=== PATIENT | female | born 1975 | race Caucasian/White ===

== ENCOUNTER 2016-08-28 10:01 | Emergency (ER) | payer SELFPAY ==
[~2016-08-28] VITALS: Ht 162.6 cm; Wt 68.2 kg
[~2016-08-28 10:01] MED LIST: ONDA4TAB7 SL
[2016-08-28 10:16] VITALS: TEMP 37; Ht 162.6 cm; Wt 68.2 kg
[2016-08-28 10:38] VITALS: O2SAT 98
--- NOTE | 2016-08-28 10:48 | EMERGENCY ROOM VISIT NOTE ---
History Report prepared by Geeta: Yin Hess Under the Supervision of: Dr. Margarito Elliott M.D. First contact with patient: 10:37 Chief Complaint: CARDIAC ASSESSMENT Stated Complaint: RT ARM NBUMBNESS, CHEST HEAVY, NECK PAIN, SWEATY Nursing Triage Summary: Triage note: pt reports for the past 2 weeks she has had intermittent chest heaviness, right arm numbness, neck pain, feeling sweaty. pt reports "i have been sleeping a lot." History of Present Illness The patient is a 41 year old female who presents to the Emergency Room with complaints of intermittent right sided- substernal chest pain that began two weeks ago. She currently rates her discomfort as a 6/10 in severity. The patient states that she has intermittently been experiencing the chest pain, and additionally notes intermittent diaphoresis, intermittent neck pain that radiates from the back of the neck to the side of the neck, and intermittent nausea. She states that today she began noticing intermittent right hand numbness. The patient denies seeing her PCP for her symptoms, noting that she does not have one. She denies any history of neck problems, neck injuries, lyme disease, thyroid problems, or lyme disease. The patient denies any active medical problems. She states that she has been sleeping more, but denies any abdominal pain. The patient states that she has been working more and denies any exposure to strange chemicals. Source of History: patient Onset: two weeks ago Position: chest (right sided-substernal) Symptom Intensity: 6/10 Timing: intermittent Associated Symptoms: + diaphoresis, + nausea, + neck pain, No abdominal pain Review of Systems See HPI for pertinent positives & negatives. A total of 10 systems reviewed and were otherwise negative. Past Medical & Surgical Surgical Problems: (1) H/O: hysterectomy Family History Cancer Diabetes mellitus FH: heart disease FHx: gallbladder disease Hypertension Social History Smoking Status: Current Every Day Smoker Alcohol Use: occasionally Drug Use: none Marital Status: in relationship Housing Status: lives with significant other Occupation Status: employed Current/Historical Medications Scheduled Methylprednisolone (Medrol Dosepak), 1 PKT PO UD Allergies Coded Allergies: No Known Allergies (Verified , 08/28/16) Uncoded Allergies: N (Allergy, Unknown, 08/25/02) NFA (Allergy, Unknown, 08/25/02) NKDA (Allergy, Unknown, 08/25/02) NO (Allergy, Unknown, 08/25/02) Physical Exam Vital Signs Date Time Temp Pulse Resp B/P Pulse Ox O2 Delivery O2 Flow Rate FiO2 08/28/16 12:24 73 18 106/78 99 08/28/16 11:11 67 18 106/65 98 Room Air 08/28/16 10:54 66 08/28/16 10:38 98 Room Air 08/28/16 10:16 37.0 84 18 132/74 99 Room Air Physical Exam GENERAL: Patient is anxious appearing, in minimal distress. HEENT: No acute trauma, normocephalic atraumatic, mucous membranes moist, no nasal congestion, no scleral icterus. NECK: No stridor, no adenopathy, no meningismus, trachea is midline. LUNGS: No dyspnea. Clear to auscultation and equal bilaterally. No wheeze, no rhonchi. HEART: Regular rate and rhythm. No murmurs, rubs, gallops appreciated. ABDOMEN: Soft, nontender, bowel sounds positive, no masses appreciated, no peritonitis. BACK: No midline tenderness, no CVA tenderness EXTREMITIES: Normal motion all extremities, no cyanosis, no edema. NEUROLOGIC: Alert and oriented, no acute motor or sensory deficits, no focal weakness, cranial nerves grossly intact. SKIN: No rash, no jaundice, no diaphoresis. Medical Decision & Procedures ER Provider Diagnostic Interpretation: X ray results are stated below per my interpretation and the radiologist's interpretation. SINGLE VIEW CHEST CLINICAL HISTORY: Atypical chest pain. FINDINGS: An AP, portable, upright chest radiograph is compared to study dated 09/04/2014. The cardiomediastinal silhouette is unremarkable. The lungs appear hyperinflated, likely due to good inspiratory result. The lungs and pleural spaces are clear. No pneumothorax is seen. The bony thorax is grossly intact. IMPRESSION: No active disease in the chest. Electronically signed by: Manpreet Rizvi M.D. 08/28/2016 11:03 AM Dictated Date/Time: 08/28/2016 11:02 AM Laboratory Results 08/28/16 10:25 08/28/16 10:25 Test 08/28/16 10:25 08/28/16 10:41 Red Blood Count 4.79 M/uL (4.2-5.4) Mean Corpuscular Volume 86.4 fL (80-100) Mean Corpuscular Hemoglobin 30.1 pg (25-34) Mean Corpuscular Hemoglobin Concent 34.8 g/dl (32-36) RDW Standard Deviation 45.4 fL (36.4-46.3) RDW Coefficient of Variation 14.2 % (11.5-14.5) Mean Platelet Volume 10.3 fL (7.4-10.4) Prothrombin Time 10.6 SECONDS (9.0-12.0) Prothromb Time International Ratio 1.0 (0.9-1.1) Activated Partial Thromboplast Time 24.7 SECONDS (21.0-31.0) Partial Thromboplastin Ratio 1.0 D-Dimer < 190 ug/L FEU (0-500) Anion Gap 9.0 mmol/L (3-11) Est Creatinine Clear Calc Drug Dose 78.2 ml/min Estimated GFR () 93.3 Estimated GFR (Non- 80.5 BUN/Creatinine Ratio 15.6 (10-20) Calcium Level 8.8 mg/dl (8.5-10.1) Total Bilirubin 0.3 mg/dl (0.2-1) Aspartate Amino Transf (AST/SGOT) 11 U/L (15-37) Alanine Aminotransferase (ALT/SGPT) 19 U/L (12-78) Alkaline Phosphatase 71 U/L (45-117) Total Creatine Kinase 89 U/L (26-192) Creatine Kinase MB 0.7 ng/ml (0.5-3.6) Creatine Kinase MB Ratio 0.8 (0-3.0) Total Protein 7.3 gm/dl (6.4-8.2) Albumin 4.3 gm/dl (3.4-5.0) Globulin 3.0 gm/dl (2.5-4.0) Albumin/Globulin Ratio 1.4 (0.9-2) Thyroid Stimulating Hormone (TSH) 1.170 uIu/ml (0.300-4.500) Bedside Troponin I 0.000 ng/ml (0-0.045) Laboratory results as reviewed by me. ECG Indication: chest pain Rate (beats per minute): 74 Rhythm: normal sinus Findings: no acute ischemic change, no ectopy ED Course 1038: The patient was evaluated in room C4. A complete history and physical exam was performed. 1202: I reevaluated the patient and she is feeling well. I discussed the exam findings with her and I discussed the treatment plan. She verbalized complete understanding and agreement. She is ready to go home. Medical Decision Differential: Cardiac Ischemia (STEMI, NSTEMI, Unstable Angina, etc), Aortic Dissection, Arrhythmia, Pulmonary Embolism, Pneumonia, Pneumothorax, MSK, Infectious, Pericarditis/Myocarditis, Esophageal Rupture, Gastrointestinal, amongst other pathologies entertained. 41 yr old female with right arm paresthesia and right upper chest discomfort. Periodically from neck. Notes periodic chills recently. Right arm normal on exam with no masses, normal pulse and neuro intact. EKG normal. Trop and Dimer negative. Wbc normal. Otherwise labs unremarkable. She is stable appearing and in no distress. TSH normal as well. No clear etiology of symptoms but I do not feel this represents ACS as ongoing symptoms with negative cardiac work up. Not PE/clot as dimer negative. No evidence of dissection. No infectious findings. May all be related to cervical radiculopathy thus will try medrol pack. Stressed PCP follow up and if worsening RTED immediately or call 911. Impression Primary Impression: Arm paresthesia, right Additional Impression: Right-sided chest pain Scribe Attestation The scribe's documentation has been prepared under my direction and personally reviewed by me in its entirety. I confirm that the note above accurately reflects all work, treatment, procedures, and medical decision making performed by me. Departure Information Dispostion Home / Self-Care Prescriptions Methylprednisolone (MEDROL DOSEPAK) 4 Mg Chad 1 PKT PO UD for 6 Days, #1 PKT Prov: Margarito Elliott M.D. 08/28/16 Referrals No Doctor, Assigned (PCP) Forms IMPORTANT VISIT INFORMATION Patient Instructions ED Chest Pain Atypical Unkn Cause, My [facility] Additional Instructions Please follow up with your primary care provider for further evaluation and testing. Return immediately if worsening symptoms or other concerns. Problem Qualifiers
[2016-08-28 10:49] LABS: HEMATOCRIT 41.4 % (37-47); MEAN CELL VOLUME 86.4 fL (80-100); MEAN CORPUSCULAR HEMOGLOBIN 30.1 pg (25-34); MEAN CORPUSCULAR HGB CONC 34.8 g/dl (32-36); MEAN PLATELET VOLUME 10.3 fL (7.4-10.4); PLATELET COUNT 320 K/uL (130-400); RED BLOOD COUNT 4.79 M/uL (4.2-5.4); WHITE BLOOD COUNT 6.85 K/uL (4.8-10.8)
[2016-08-28 11:00] LABS: PROTHROMBIN TIME (PATIENT) 10.6 SECONDS (9.0-12.0)
--- NOTE | 2016-08-28 11:04 | DIAGNOSTIC IMAGING REPORT ---
SINGLE VIEW CHEST CLINICAL HISTORY: Atypical chest pain. FINDINGS: An AP, portable, upright chest radiograph is compared to study dated 09/04/2014. The cardiomediastinal silhouette is unremarkable. The lungs appear hyperinflated, likely due to good inspiratory result. The lungs and pleural spaces are clear. No pneumothorax is seen. The bony thorax is grossly intact. IMPRESSION: No active disease in the chest. Electronically signed by: Manpreet Rizvi M.D. 08/28/2016 11:03 AM Dictated Date/Time: 08/28/2016 11:02 AM
[2016-08-28 11:06] LABS: BUN/CREATININE RATIO 15.6 (10-20); CALCIUM 8.8 mg/dl (8.5-10.1); CREATININE 0.88 mg/dl (0.60-1.20); POTASSIUM 3.6 mmol/L (3.5-5.1)
[2016-08-28 11:11] LABS: ALB/GLOB RATIO 1.4 (0.9-2); CKMB/CK RATIO 0.8 (0-3.0)
[2016-08-28] MEDS ORDERED: METH4PAK PO (12:08)
[2016-08-28 12:24] VITALS: BP 106/78; PULSE 73; O2SAT 99
== END 2016-08-28 12:25 | disposition home or self-care (01) ==
LOC: C.EDB 10:03 → C.EDC 12:25
DX: R07.89 Other chest pain (principal); R20.2 Paresthesia of skin; F17.200 Nicotine dependence, unspecified, uncomplicated; Z90.710 Acquired absence of both cervix and uterus; Z80.9 Family history of malignant neoplasm, unspecified; Z83.3 Family history of diabetes mellitus; Z82.49 Family history of ischemic heart disease and other diseases of the circulatory system; Z83.79 Family history of other diseases of the digestive system

== ENCOUNTER 2018-11-09 18:31 | Observation (INO) ==
[2018-11-09] MEDS ORDERED: ONDANSETRON INJ 2 MG/ML 2 ML VIAL IV STA (19:24)
[2018-11-09] MEDS ORDERED: ACETAMINOPHEN 1,000 MG/100 ML VIAL IV STA (19:24)
[2018-11-09] MEDS ORDERED: SODIUM CHLORIDE 0.9% 1000ML 1,000 ML IV ONE ×2 (19:24→20:09)
[2018-11-09] MEDS ORDERED: DICYCLOMINE HCL 10 MG/ML 2 ML AMP/VIAL IM ONE (19:24)
[2018-11-09 20:08] LABS: Basophils # (auto) 0.04 K/uL (0-0.2); Basophils % (auto) 0.2 %; Eosinophils # (auto) 0.04 K/uL (0-0.5); Eosinophils % (auto) 0.2 %; Hemoglobin 14.9 g/dL (12.0-16.0); Immature Granulocytes # (auto) 0.07 K/uL (0.00-0.02); Immature Granulocytes % (auto) 0.3 %; Lymphocytes # (auto) 1.84 K/uL (1.2-3.4); Lymphocytes % (auto) 9.2 %; Mean Corpuscular Hgb Conc 35.5 g/dL (32-36); Mean Corpuscular Volume 86.8 fL (80-100); Monocytes # (auto) 0.89 K/uL (0.11-0.59); Monocytes % (auto) 4.4 %; Neutrophils # (auto) 17.18 K/uL (1.4-6.5); Neutrophils % (auto) 85.7 %; Platelet Count 307 K/uL (130-400); RDW Coefficient of Variation 14.6 % (11.5-14.5); RDW Standard Deviation 46.5 fL (36.4-46.3); Red Blood Count 4.84 M/uL (4.2-5.4); White Blood Count 20.06 K/uL (4.8-10.8)
[2018-11-09 20:26] LABS: Alanine Aminotransferase 25 U/L (12-78); Albumin Level 4.3 gm/dl (3.4-5.0); Aspartate Aminotransferase 17 U/L (15-37); BUN Creatinine Ratio 24.3 (10-20); Blood Urea Nitrogen 20 mg/dl (7-18); Calcium 9.2 mg/dl (8.5-10.1); Carbon Dioxide 26 mmol/L (21-32); Chloride 107 mmol/L (98-107); Creatinine Clr Calc Pharmacy 86.5 ml/min; Est GFR (African American) 101.7; Est GFR (Non-African American) 87.7; Glucose 96 mg/dl (70-99); Magnesium 2.1 mg/dl (1.8-2.4); Potassium 3.8 mmol/L (3.5-5.1); Sodium 141 mmol/L (136-145)
[2018-11-09 20:31] LABS: Albumin Globulin Ratio 1.3 (0.9-2); Alkaline Phosphatase 79 U/L (45-117); Bilirubin,Total 0.2 mg/dl (0.2-1); Globulin 3.3 gm/dl (2.5-4.0); Total Protein 7.6 gm/dl (6.4-8.2); Troponin I < 0.015 ng/ml (0-0.045)
--- NOTE | 2018-11-09 20:43 | XRay Report ---
XR abdomen 2V w PA chest CLINICAL HISTORY: n/v/d nausea. Vomiting. COMPARISON STUDY: 08/28/2016 FINDINGS: The soft tissues, psoas shadows, renal outlines and intestinal gas pattern appear normal. T here is no evidence for bowel obstruction. There is no evidence for free intraperitoneal air. No abno rmal abdominal calcifications are seen. A frontal view of the chest was performed and is unremarkable . Minimal nonobstructive ileus. IMPRESSION: 1. Negative chest. 2. Minimal nonobstructive ileus. The above report was generated using voice recognition software. It may contain grammatical, syntax or spelling errors. Electronically signed by: Larry Parson M.D. 11/09/2018 8:41 PM
[2018-11-09] MEDS ORDERED: KETOROLAC TROMETHAMINE 15 MG/ML VIAL IV STA (21:09)
[2018-11-09] MEDS ORDERED: IOVERSOL 100ml IV PRN (21:41)
--- NOTE | 2018-11-09 21:55 | CT Scan Report ---
CT abd pelvis IV con only CT DOSE: 398.47 mGy.cm HISTORY: Pain abd pain, n/v/d TECHNIQUE: Multiaxial CT images of the abdomen and pelvis were performed following the use of intrave nous contrast. A dose lowering technique was utilized adhering to the principles of ALARA. COMPARISON STUDY: None. FINDINGS: Lung bases are clear. Liver spleen and pancreas are unremarkable. Kidneys enhance uniformly. There is a 7 mm nonobstructing left renal cortical calcification. There is a 2 mm nonobstructing inferior pole right renal calcification. No evidence for hydronephrosis. The bowel pattern is nonobstructive. The appendix is slightly distended at 8 mm in maximum transaxial dimension. There is a trace amount o f periappendiceal infiltrative change. No evidence for abscess collection or obstructive pattern. Bladder is midline. No free fluid within the pelvic cul-de-sac. IMPRESSION: 1. Findings consistent with a low-grade appendicitis 2. The appendix has a maximum diameter of 8 mm, with a minimal amount of periappendiceal infiltrative change. 3. No evidence for abscess collection or obstruction. 4. Nonobstructing renal nephrocalcinosis. The above report was generated using voice recognition software. It may contain grammatical, syntax or spelling errors. Electronically signed by: Larry Parson M.D. 11/09/2018 9:53 PM
--- OUTSIDE RECORDS SUMMARY | 2018-11-09 22:07 | External Medical Summary | Continuity of Care Document ---
:1975 Author Name Min Cano, Provider Address Unavailable Unavailable , Care Team Providers Name Role Phone Brenda Pulido Unavailable [email or web address] PCP, NO Unavailable Unavailable Problems Active medical history not documented Allergies and Adverse Reactions Allergy history not documented Medications Medications not documented Procedures Procedures not documented Immunizations Immunizations not documented Plan of Treatment Planned Observations Planned Goals not documented Results No Known Results Results not documented Encounters Appointment; Brenda Valdivia CRNP 18-Feb-2018 8:00 Encounter Diagnosis: Problem not documented
[2018-11-09] MEDS ORDERED: cefOXitin 2,000 MG/60 ML BAG IV STA (22:45)
--- NOTE | 2018-11-09 22:58 | History & Physical Report ---
Date of Service November 09, 2018 Assessment & Plan (1) Appendicitis: Impression acute appendicitis plan is to proceed with laparoscopic appendectomy possible open risk and complication were explained to the patient and family including bleeding infection conversion to o open and injury to other organs Permission for surgery was granted preop antibiotics ordered SCD ordered Present on Admission?: Yes History of Present Illness This 43-year-old female earlier this afternoon experienced significant abdominal pain she thought she initially could write it out had some nausea associated with no emesis progressively became worse was seen in the emergency room and work-up including elevated white count of 20 K and findings consistent with appendicitis She denied having had any pain like this in the past Primary Care Provider: NO PCP Allergies Allergy/AdvReac Type Severity Reaction Status Date / Time No Known Allergies Allergy Unknown Verified 11/09/18 20:48 Home Medications Home Medications Medication Instructions Recorded Confirmed Type aspirin [Aspir-81] 81 mg PO DAILY PRN 11/09/18 11/09/18 History ibuprofen 600 mg PO DAILY PRN 11/09/18 11/09/18 History Past Med/Surg History Surgical History H/O: hysterectomy (Chronic) Social History Preferred Language: Mongolian Feels Safe at Home: Yes Smoking Status: Current every day smoker Review of Systems Review of Systems: The patient overall is enjoyed good health she denies any systemic disease any cardiovascular cardiopulmonary or other chronic illnesses Physical Exam Physical Exam: She is alert coherent in no distress family at the bedside Eyes: PERRL, conjunctivae normal, anicteric sclerae ENMT: external ear and nose normal, oropharynx normal Neck: trachea midline, no thyromegaly trachea midline Thyroid: normal thyroid Respiratory: normal respiratory effort, lungs clear to auscultation normal respiratory effort Cardiovascular: RRR, no murmur, no edema Rate/Rhythm: regular rate and regular rhythm Gastrointestinal (Abdomen): Lower quadrant bilateral tattoos noted on jewelry around the umbilical area scar from previous surgery noted Abdomen softly distended exquisite tenderness and rebound in the right lower quadrant no hernias appreciated Musculoskeletal: no cyanosis or clubbing, extremities motor strength 5/5 Skin: no rashes, warm and dry Psychiatric: A+Ox3, euthymic affect Results & Data Vital Signs (Past 12 Hours) Vital Signs Temp Pulse Pulse Resp BP BP Pulse Ox 11/09/18 21:04 79 16 106/89 98 11/09/18 20:03 73 22 117/61 98 11/09/18 18:44 36.8 C 87 20 116/76 99
[2018-11-09] MEDS ORDERED: LIDOCAINE/EPINEPHRINE 1% 20 ML VIAL ONE (23:02)
[2018-11-09] MEDS ORDERED: fentaNYL citrate 100 MCG/2 ML VIAL ONE (23:46)
--- NOTE | 2018-11-09 23:59 | Anesthesiology Consultation ---
Date of Service November 09, 2018 Assessment & Plan (1) Encounter for pre-operative examination: Chart Review Chart Review: Acceptable Risk for Surgery and Patient NOT seen in Pre Admission Testing Consults Requested none History Surgery Operation Date: 11/09/18 23:15 Proposed Procedures p Laparoscopic Appendectomy - Terry Villaseñor MD Height/Weight Height: 5 ft 4 in Weight: 74.2 kg Allergies Allergy/AdvReac Type Severity Reaction Status Date / Time No Known Allergies Allergy Unknown Verified 11/09/18 20:48 Medications Home Medications Medication Instructions Recorded Confirmed Last Taken aspirin [Aspir-81] 81 mg PO DAILY PRN 11/09/18 11/09/18 11/08/18 ibuprofen 600 mg PO DAILY PRN 11/09/18 11/09/18 11/08/18 Active Medications Generic Name Dose Route Start Last Admin Trade Name Freq PRN Reason Stop Dose Admin Ioversol 94 ml 11/09/18 21:41 11/09/18 21:41 Optiray 320 100ml IV 11/13/18 21:40 94 ml ONCE PRN Administration Interaction Checking NPO Date Last Intake of Fluids: 11/09/18 Time Last Intake of Fluids: 18:00 Date Last Intake of Solids: 11/09/18 Time Last Intake of Solids: 14:00 Past Surgical History Surgical History H/O: hysterectomy (Chronic) Social History Smoking Status: Current every day smoker Physical Exam Vital Signs Last Vital Signs Temp 36.8 C 11/09/18 18:44 Pulse 82 11/09/18 23:01 Resp 14 11/09/18 23:01 BP 116/57 L 11/09/18 23:01 Pulse Ox 94 11/09/18 23:01 Testing Laboratory Results 11/09/18 19:40 11/09/18 19:40
[2018-11-10] MEDS ORDERED: ATROPINE SULFATE 0.1 MG/ML 10ML SYR IV PRN (00:02)
[2018-11-10] MEDS ORDERED: HYDROmorphone INJ 1 MG/ML SYRINGE IV PRN ×2 (00:02→03:04)
[2018-11-10] MEDS ORDERED: ePHEDrine sulfate 50 MG/ML AMP IV PRN (00:02)
[2018-11-10] MEDS ORDERED: fentaNYL citrate 100 MCG/2 ML VIAL ONE (00:35)
[2018-11-10] MEDS ORDERED: ONDANSETRON INJ 2 MG/ML 2 ML VIAL ONE ×2 (00:46→08:24)
--- NOTE | 2018-11-10 01:09 | Post Operative Brief Note ---
Immediate Post Op Note v1 Date of Surgery November 10, 2018 Pre & Post Diagnosis Operation Date: 11/09/18 23:15 Pre-Op Diagnosis: Acute Appendicitis Post-Op Diagnosis: Acute Appendicitis Procedure Operation Date: 11/09/18 23:15 Actual Procedures p Laparoscopic Appendectomy(Not Applicable) - Terry Villaseñor MD Surgeon Terry Villaseñor MD Construction Accountant 0 Estimated Blood Loss 5 Findings Consistent with Post-Op Diagnosis
[2018-11-10] MEDS ORDERED: LIDOCAINE HCL 2% 2 ML VIAL/AMP(20MG/ML) INFIL ONE (01:12)
[2018-11-10] MEDS ORDERED: ROCURONIUM BROMIDE 10 MG/ML 5 ML VIAL ONE (01:12)
[2018-11-10] MEDS ORDERED: SUCCINYLCHOLINE CHLORIDE 20 MG/ML 10 ML VIAL ONE (01:12)
[2018-11-10] MEDS ORDERED: NEOSTIGMINE METHYLSULFATE 5 MG/5 ML SYR ONE (01:12)
[2018-11-10] MEDS ORDERED: GLYCOPYRROLATE 0.2 MG/ML VIAL ONE (01:13)
[2018-11-10] MEDS ORDERED: ONDANSETRON INJ 2 MG/ML 2 ML VIAL IV PRN ×2 (01:21→07:56)
[2018-11-10] MEDS ORDERED: ACETAMINOPHEN 325 MG TAB PO PRN (01:21)
--- NOTE | 2018-11-10 01:33 | Anesthesiology Progress Note ---
Date of Service November 10, 2018 Anesthesia Post Procedure Vital Signs Vital Signs: Temp Pulse Pulse Resp BP BP Pulse Ox 11/09/18 23:01 82 14 116/57 L 94 11/09/18 21:04 79 16 106/89 98 11/09/18 20:03 73 22 117/61 98 11/09/18 18:44 36.8 C 87 20 116/76 99 Pain Intensity Right Abdomen: Pain Intensity: 4 Transfer of Care Handoff Completed per policy Notes Mental Status: alert / awake / arousable Patient Amnestic to Procedure: Yes Nausea / Vomiting: adequately controlled Pain: adequately controlled Airway Patency, RR, SpO2: stable & adequate BP & HR: stable & adequate Hydration State: stable & adequate Anesthetic Complications: no major complications apparent and Pt Satisfied with anesthetic care
--- NOTE | 2018-11-10 01:41 | Operative Report ---
Post Operative Report Pre & Post Diagnosis Operation Date: 11/09/18 23:15 Pre-Op Diagnosis: Acute Appendicitis Post-Op Diagnosis: Acute Appendicitis Procedure Operation Date: 11/09/18 23:15 Actual Procedures p Laparoscopic Appendectomy(Not Applicable) - Terry Villaseñor MD Patient was brought into the operating theater supine position general endotracheal anesthesia the abdomen was prepped Betadine solution properly draped timeout was had small incision was made supraumbilically above the puncture sites that she had for jewelry and is periumbilical area Veress needle introduced CO2 insufflated followed by 5 mm trocar point of entry inspected no injury identified patient was noted to have adhesions below the umbilical area to the symphysis pubis from her previous section at this point with preemptive local analgesia and right upper quadrant 5 mm trocar was inserted under direct visualization then we were able to elevate the cecum I did not really see the appendix at this point we are able to take down some adhesions anterior abdominal wall this created some more of a window in the right lower quadrant we then placed a 5 mm trocar with preemptive local analgesic almost like Alec's point under direct visualization and using that trocar site and one in right upper quadrant where he was elevated the cecum identified the appendix which was down towards the gutter the base of the appendix was inflamed or hyperemic there was fibrous exudate distally in the appendix and mesoappendix but no sign of rupture was then agreeable create a window between the mesoappendix and the base of the cecum then converted a 5 mm periumbilical port for level millimeter to be able to place an Endo SALLY with a schwarz load we were able to resect divide the appendix from the cecum hemostasis was excellent then we used 2 more firings of the SALLY schwarz load to divide the mesoappendix the appendix was then placed in an Endopouch and taken out through the umbilical port the trochars were reinserted the area was checked hemostasis appear excellent we placed the patient in reverse Trendelenburg positions and irrigated the area individual trochars were then removed under direct visualization unless the umbilical trocar 0 Vicryl suture [id number] [id number] was used for the umbilical fascia 4-0 Monocryl was used subcutaneously for the other puncture sites and also the subcu on the periumbilical area Steri-Strips applied procedure tolerated well estimated loss is 5 cc Surgeon Terry Villaseñor MD Mica Paster 0 Estimated Blood Loss 5 Findings Consistent with Post-Op Diagnosis Specimens appendix Description of Procedure merda I attest to the content of the Intraoperative Record and any orders documented therein. Any exceptions are noted below.
[2018-11-10] MEDS ORDERED: LACTATED RINGER'S 1,000 ML IV SCH (03:04)
--- NOTE | 2018-11-10 07:48 | Surgery Progress Note ---
Date of Service November 10, 2018 Assessment & Plan (1) Appendicitis: 8 hrs s/p Laparoscopic Appendectomy with Dr. Villaseñor. patient doing well- abdominal discomfort as expected. voiding without issue. ok for discharge later today if she continues to do well, if pain is controlled and if she is tolerating a regular diet. return precautions reviewed. verbal and written discharge instructions provided. patient to follow-up in general surgery clinic in 1 week. all questions answered. Subjective Patient is roughly 8 hrs post-op and doing well. Sleeping as we entered the room. Easily awakened- States that she does have abdominal discomfort, but the pain that brought her to hospital has resolved. Physical Exam Gastrointestinal (Abdomen): Percussion/Palpation: + abdomen tender (as expected at incision sites. ) and abdomen soft; no guarding and abdomen not rigid 3 incision sites well approximated with steri-strips. Clean, dry. Results & Data Vital Signs (Past 12 Hours) Vital Signs Temp Pulse Pulse Pulse Resp BP BP 11/10/18 06:00 37.2 C 95 H 16 98/60 L 11/10/18 04:55 37.1 C 80 16 102/67 11/10/18 03:55 36.9 C 70 16 95/61 L 11/10/18 03:25 36.9 C 72 16 97/62 L 11/10/18 02:55 37 C 86 16 104/67 11/10/18 02:25 76 84/61 L 11/10/18 02:20 72 91/56 L 11/10/18 02:16 68 92/58 L 11/10/18 02:11 68 91/55 L 11/10/18 02:07 71 11/10/18 02:06 37.0 C 75 97/63 L 11/10/18 02:01 74 96/64 L 11/10/18 02:00 68 11/10/18 01:55 71 95/60 L 11/10/18 01:51 68 11/10/18 01:50 72 95/59 L 11/10/18 01:46 69 95/61 L 11/10/18 01:41 75 90/73 L 11/10/18 01:36 80 111/63 11/10/18 01:30 37.0 C 84 11/09/18 23:01 82 14 116/57 L 11/09/18 21:04 79 16 106/89 11/09/18 20:03 73 22 117/61 Pulse Ox 11/10/18 06:00 93 11/10/18 04:55 98 11/10/18 03:55 96 11/10/18 03:25 96 11/10/18 02:55 92 11/10/18 02:25 97 11/10/18 02:20 97 11/10/18 02:16 96 11/10/18 02:11 96 11/10/18 02:07 97 11/10/18 02:06 98 11/10/18 02:01 100 11/10/18 02:00 100 11/10/18 01:55 100 11/10/18 01:51 99 11/10/18 01:50 99 11/10/18 01:46 99 11/10/18 01:41 99 11/10/18 01:36 99 11/10/18 01:30 11/09/18 23:01 94 11/09/18 21:04 98 11/09/18 20:03 98
[2018-11-10] MEDS ORDERED: MoRPHine SULFATE 2 MG/ML CARP IV PRN (07:49)
[2018-11-10] MEDS ORDERED: OXYCODONE/ACETAMINOPHEN 5mg/325mg TAB PO PRN ×2 (07:49)
--- NOTE | 2018-11-11 08:52 | Emergency Department Note ---
Entered by Wendy Flores acting as a scribe for Carey Lombardi DO History of Present Illness General Chief complaint: Abdominal Pain Stated complaint: VOMITING, VERY SEVERE ABDOMINAL PAIN Time Seen by Provider: 11/09/18 18:49 Source: patient Mode of arrival: ambulatory Limitations: no limitations History of Present Illness Provider complaint: Abd Pain Onset (ago): hour(s) 4 Location: abdomen Radiation: non-radiation Severity: moderate Pain Consistency: + intermittent Maximum Pain Intensity: 8 Current Pain Intensity: 8 Relieved By: + none Exacerbated By: + none Associated symptoms: + denies other symptoms, + fever/chills (+ chills, -fevers) and + nausea/vomiting; no chest pain, no cough, no headaches and no shortness of breath Treatments prior to arrival: none Patient is a 43 year old female presenting to the ED with abd pain beginning a few hours ago. Pain was moderate in severity and intermittent since onset. She notes it is generalized abd pain, and does not radiate into the back. She includes she did have trouble going to work due to abd pain, and vomiting. She notes she did have 3 episodes of vomiting and 3 bowel movements since onset. She notes she is having chills as well. shares that he notes sx started after patient ate an egg for lunch. She denies any change in activity. She denies any urinary changes or sx, fevers, CP, SOB, or any other complaints at this time. She denies any recent travel or trauma. 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 Patient notes she does have a history of smoking, and PMHX of hysterectomy. Patient states abdominal pain is still coming and going, and makes her nauseated when present. No prior history of IBS or inflammatory bowel disease in her or family members. Home Medications Home Medications Medication Instructions Recorded Confirmed Type aspirin [Aspir-81] 81 mg PO DAILY PRN 11/09/18 11/09/18 History ibuprofen 600 mg PO DAILY PRN 11/09/18 11/09/18 History oxycodone-acetaminophen [Percocet] 1 - 2 tab PO Q6H PRN 3 Days #12 tab 11/10/18 Rx Allergies Allergy/AdvReac Type Severity Reaction Status Date / Time No Known Allergies Allergy Unknown Verified 11/09/18 20:48 Past Med/Surg History Surgical History H/O: hysterectomy (Chronic) Social History Preferred Language: Welsh Communication Ability: Effective Executive Coordinator Required: No Beliefs That Will Affect Care: None Current Living Situation: Alone Other Information That Helps Us Care for You: No Feels Safe at Home: Yes Safety Concerns: Feels Safe At This Time Smoking Status: Light tobacco smoker Tobacco Type: cigarettes Hx Alcohol Use: Yes Review of Systems See HPI for pertinent positives & negatives. and A total of 10 systems reviewed and were otherwise negative Physical Exam Vital Signs Vital Signs - 24 hr 11/10/18 10:00 Respiratory Effort / Characteristics Non-Labored Respiratory Depth Normal Respiratory Pattern Regular GENERAL: alert, well appearing, well nourished, no distress, non-toxic EYE EXAM: normal conjunctiva, PERRL and EOM's grossly intact OROPHARYNX: no exudate, no erythema, lips, buccal mucosa, and tongue normal and mucous membranes are dry NECK: supple, no nuchal rigidity, no adenopathy, non-tender LUNGS: Clear to auscultation. Normal chest wall mechanics, no w/r/r HEART: no murmurs, S1 normal and S2 normal ABDOMEN: abdomen soft, non-tender, normo-active bowel sounds, no masses, no rebound or guarding. BACK: Back is symmetrical on inspection and there is no deformity, no midline tenderness, no CVA tenderness. SKIN: no rashes and no bruising UPPER EXTREMITIES: upper extremities are grossly normal. FROM, nml pulses b/l. LOWER EXTREMITIES: No pitting edema. FROM, nml pulses b/l. NEURO EXAM: Normal sensorium, cranial nerves II-XII grossly intact, normal speech, no gross weakness of arms, no gross weakness of legs. No drift. Finger to nose intact. Gross sensation intact. Course 1913: Patient was evaluated in room A02. A full history and physical examination were obtained. 2200: Reassessed patient, who notes her pain has improved. 2203: Updated patient on CT findings. 2214: Discussed patient case with Dr. Villaseñor, general surgery, who will see patient in the ED. Administered Medications Discontinued Medications Acetaminophen (Tylenol) 650 mg PO Q4H PRN PRN Reason: pain/fever Stop: 12/10/18 01:20 Last Admin: 11/10/18 09:55 Dose: 650 mg Documented by: [id number] Dicyclomine HCl (Bentyl) 20 mg IM NOW ONE Stop: 11/09/18 19:25 Last Admin: 11/09/18 19:42 Dose: 20 mg Documented by: [id number] Hydromorphone HCl (Dilaudid) 1 mg IV Q1HWA PRN PRN Reason: Pain Stop: 11/24/18 03:03 Last Admin: 11/10/18 05:18 Dose: 1 mg Documented by: [id number] Acetaminophen (Ofirmev) 1,000 mg in 100 mls @ 400 mls/hr IV NOW STA Stop: 11/09/18 19:38 Last Infusion: 11/09/18 20:05 Dose: 0 mls/hr Documented by: [id number] Admin: 11/09/18 19:41 Dose: 400 mls/hr Documented by: [id number] Sodium Chloride (Nss 1000ml) 1,000 mls @ 999 mls/hr IV .Q1H1M ONE Stop: 11/09/18 20:24 Last Infusion: 11/09/18 20:49 Dose: 0 mls/hr Documented by: [id number] Admin: 11/09/18 19:42 Dose: 999 mls/hr Documented by: [id number] Sodium Chloride (Nss 1000ml) 1,000 mls @ 999 mls/hr IV .Q1H1M ONE Stop: 11/09/18 21:09 Last Infusion: 11/09/18 21:12 Dose: 0 mls/hr Documented by: [id number] Admin: 11/09/18 20:49 Dose: 999 mls/hr Documented by: [id number] Cefoxitin Sodium (Mefoxin) 2,000 mg in 60 mls @ 100 mls/hr IV NOW STA Stop: 11/09/18 23:20 Last Infusion: 11/10/18 06:39 Dose: 0 mls/hr Documented by: [id number] Admin: 11/09/18 23:02 Dose: 100 mls/hr Documented by: [id number] Lactated Ringer's (Lr) 1,000 mls @ 125 mls/hr IV .Q8H OSVALDO Stop: 12/10/18 03:03 Last Admin: 11/10/18 05:18 Dose: 125 mls/hr Documented by: [id number] Ioversol (Optiray 320 100ml) 94 ml IV ONCE PRN PRN Reason: Interaction Checking Stop: 11/13/18 21:40 Last Admin: 11/09/18 21:41 Dose: 94 ml Documented by: [id number] Ketorolac Tromethamine (Toradol) 15 mg IV NOW STA Stop: 11/09/18 21:10 Last Admin: 11/09/18 21:12 Dose: 15 mg Documented by: [id number] Lidocaine/Epinephrine (Xylocaine/Epinephrine 1%) Confirm Administered Dose 20 ml .ROUTE .STK-MED ONE Stop: 11/09/18 23:03 Last Admin: 11/10/18 01:12 Dose: 8 ml Documented by: [id number] Ondansetron HCl (Zofran) 4 mg IV NOW STA Stop: 11/09/18 19:25 Last Admin: 11/09/18 19:42 Dose: 4 mg Documented by: [id number] Ondansetron HCl (Zofran) 4 mg IV Q6H PRN PRN Reason: Nausea Stop: 12/10/18 01:20 Last Admin: 11/10/18 02:26 Dose: 4 mg Documented by: [id number] Ondansetron HCl (Zofran) Confirm Administered Dose 4 mg .ROUTE .STK-MED ONE Stop: 11/10/18 08:25 Last Admin: 11/10/18 08:25 Dose: 4 mg Documented by: [id number] Medical Decision Making Differential Diagnosis Differential diagnosis: Etiologies such as appendicitis, diverticulitis, PUD, biliary pathology, UTI, pancreatitis, obstruction, mesenteric ischemia, aortic pathology, infections, inflammatory bowel disease, renal colic, as well as others were entertained. Medical Records Attestation: I reviewed the patient's medical records. Home Medications Current Medication List: was personally reviewed by me Laboratory Data Attestation: I reviewed the patient's lab results. Result diagrams: 11/09/18 19:40 11/09/18 19:40 Lab Results 11/09/18 11/09/18 Range/Units 19:40 19:40 WBC 20.06 H (4.8-10.8) K/uL RBC 4.84 (4.2-5.4) M/uL Hgb 14.9 (12.0-16.0) g/dL Hct 42.0 (37-47) % MCV 86.8 (80-100) fL MCH 30.8 (25-34) pg MCHC 35.5 (32-36) g/dL RDW Std Deviation 46.5 H (36.4-46.3) fL RDW Coeff of Leigh Ann 14.6 H (11.5-14.5) % Plt Count 307 (130-400) K/uL MPV 11.0 H (7.4-10.4) fL Immature Gran % (Auto) 0.3 % Neut % (Auto) 85.7 % Lymph % (Auto) 9.2 % Patrick % (Auto) 4.4 % Eos % (Auto) 0.2 % Baso % (Auto) 0.2 % Immature Gran # (Auto) 0.07 H (0.00-0.02) K/uL Neut # (Auto) 17.18 H (1.4-6.5) K/uL Lymph # (Auto) 1.84 (1.2-3.4) K/uL Patrick # (Auto) 0.89 H (0.11-0.59) K/uL Eos # (Auto) 0.04 (0-0.5) K/uL Baso # (Auto) 0.04 (0-0.2) K/uL Sodium 141 (136-145) mmol/L Potassium 3.8 (3.5-5.1) mmol/L Chloride 107 (98-107) mmol/L Carbon Dioxide 26 (21-32) mmol/L Anion Gap 8.0 (3-11) BUN 20 H (7-18) mg/dl Creatinine 0.81 (0.6-1.2) mg/dl Est Cr Clr Drug Dosing 86.5 ml/min Est GFR ( Amer) 101.7 Est GFR (Non-Af Amer) 87.7 BUN/Creatinine Ratio 24.3 H (10-20) Glucose 96 (70-99) mg/dl Calcium 9.2 (8.5-10.1) mg/dl Magnesium 2.1 (1.8-2.4) mg/dl Total Bilirubin 0.2 (0.2-1) mg/dl AST 17 (15-37) U/L ALT 25 (12-78) U/L Alkaline Phosphatase 79 (45-117) U/L Troponin I < 0.015 (0-0.045) ng/ml Total Protein 7.6 (6.4-8.2) gm/dl Albumin 4.3 (3.4-5.0) gm/dl Globulin 3.3 (2.5-4.0) gm/dl Albumin/Globulin Ratio 1.3 (0.9-2) Lipase 114 (73-393) U/L Imaging Data Radiologist's Impression: XR abdomen 2V w PA chest CLINICAL HISTORY: n/v/d nausea. Vomiting. COMPARISON STUDY: 08/28/2016 FINDINGS: The soft tissues, psoas shadows, renal outlines and intestinal gas pattern appear normal. There is no evidence for bowel obstruction. There is no evidence for free intraperitoneal air. No abnormal abdominal calcifications are seen. A frontal view of the chest was performed and is unremarkable. Minimal nonobstructive ileus. IMPRESSION: 1. Negative chest. 2. Minimal nonobstructive ileus. The above report was generated using voice recognition software. It may contain grammatical, syntax or spelling errors. Electronically signed by: Larry Parson M.D. 11/09/2018 8:[address] abd pelvis IV con only CT DOSE: 398.47 mGy.cm HISTORY: Pain abd pain, n/v/d TECHNIQUE: Multiaxial CT images of the abdomen and pelvis were performed following the use of intravenous contrast. A dose lowering technique was utilized adhering to the principles of ALARA. COMPARISON STUDY: None. FINDINGS: Lung bases are clear. Liver spleen and pancreas are unremarkable. Kidneys enhance uniformly. There is a 7 mm nonobstructing left renal cortical calcification. There is a 2 mm nonobstructing inferior pole right renal calcification. No evidence for hydronephrosis. The bowel pattern is nonobstructive. The appendix is slightly distended at 8 mm in maximum transaxial dimension. There is a trace amount of periappendiceal infiltrative change. No evidence for abscess collection or obstructive pattern. Bladder is midline. No free fluid within the pelvic cul-de-sac. IMPRESSION: 1. Findings consistent with a low-grade appendicitis 2. The appendix has a maximum diameter of 8 mm, with a minimal amount of periappendiceal infiltrative change. 3. No evidence for abscess collection or obstruction. 4. Nonobstructing renal nephrocalcinosis. The above report was generated using voice recognition software. It may contain grammatical, syntax or spelling errors. Electronically signed by: Larry Parson M.D. 11/09/2018 9:53 PM ECG Data Attestation: I personally reviewed and interpreted this ECG as follows: Indication: abdominal pain Rate (beats per minute): 81 Rhythm: sinus rhythm Findings: + other (normal axis, normal interval); no PAC, no PVC, no acute ischemic change and no ectopy Blood Pressure Blood Pressure Findings: Normal blood pressure MDM Narrative Patient presenting here with abdominal pain, nausea, vomiting, and diarrhea, as well as subjective fevers and chills. Patient's x-rays initially unrevealing however patient's labs showed a significant leukocytosis and patient continued to have intermittent abdominal pain and nausea. Patient sent for CAT scan of the abdomen and pelvis which revealed acute appendicitis. Patient was made awar e of all results and plan to contact general surgery. Case was discussed with Dr. Villaseñor for possible surgical intervention and treatment. Patient hemodynamically stable. No evidence of abscess or perforation. No recurrent vomiting or diarrhea while in the emergency room. Impression & Plan Appendicitis, Abdominal pain, Nausea & vomiting, Diarrhea Discharge Plan Visit Data *Final* Discharge Date/Time: 11/09/18 23:26 Chief Complaint: Abdominal Pain Stated Complaint: VOMITING, VERY SEVERE ABDOMINAL PAIN ED Provider: Carey Lombardi Discharge Problem: Appendicitis, Abdominal pain, Nausea & vomiting, Diarrhea Patient Disposition: Admitted As Inpatient Condition: Good Discharge Instructions Interventions: ED Discharge Assessment Last Done: 11/09/18 23:23 The scribe's documentation has been prepared under my direction and personally reviewed by me in its entirety. I confirm that the note above accurately reflects all work, treatment, procedures, and medical decision making performed by me.
--- NOTE | 2018-11-11 15:50 | Discharge Summary ---
Date of Service November 11, 2018 Admission HPI Per Admitting Provider This 43-year-old female earlier this afternoon experienced significant abdominal pain she thought she initially could write it out had some nausea associated with no emesis progressively became worse was seen in the emergency room and work-up including elevated white count of 20 K and findings consistent with appendicitis She denied having had any pain like this in the past Principal Diagnosis Appendicitis Discharge Data Allergies Allergy/AdvReac Type Severity Reaction Status Date / Time No Known Allergies Allergy Unknown Verified 11/09/18 20:48 Procedures Performed Operation Date: 11/09/18 23:15 Actual Procedures p Laparoscopic Appendectomy(Not Applicable) - Terry Villaseñor MD Ordered Studies 11/09/18 21:12 CT abd pelvis IV con only Stat Hospital Course (1) Appendicitis: 8 hrs s/p Laparoscopic Appendectomy with Dr. Villaseñor. patient doing well- abdominal discomfort as expected. voiding without issue. ok for discharge later today if she continues to do well, if pain is controlled and if she is tolerating a regular diet. return precautions reviewed. verbal and written discharge instructions provided. patient to follow-up in general surgery clinic in 1 week. all questions answered. Patient discharged to home. Tolerating regular diet, pain controlled. Patient to follow-up with Dr. Villaseñor in clinic in 1-2 weeks. Total Time Total Time Spent Total Time Spent (In Minutes): 5 Discharge Plan Discharge Items Patient Disposition: Home - Self-Care Reason For Visit: POST OP APPY Discharge Diagnosis: Acute Appendicitis Condition: Good Discharge Goals: Decrease discomfort and Improve function Activity: As commented below Lifting: No more than 10 pounds Lifting Comment: No lifting over 10 lbs for 72 hrs, then gradually increase as tolerated Bathing: No limitations Bathing Comment: Do not soak or scrub your incisions. Exercise/Sports: Gradually increase as tolerated Driving/Machine Use: Resume 3 days after discharge Driving/Machine Use Comment: Do not drive within 12 hrs of taking Percocet. Non-emergency contact: Surgeon Call non-emergency contact if: you have any medication questions, your pain is not controlled, your temperature is above 101.5, your wound has increased redness and your wound has increased drainage Follow-up/Referrals: Terry Villaseñor MD [Surgeon] - (Please call the General Surgery clinic at [phone] to schedule a follow-up appointment with Dr. Villaseñor. Please call the General Surgery clinic with any questions or concerns. ) PCP,NO [Primary Care Provider] - Diet: Regular Addtl Provider Instructions: You may shower, but do not soak or scrub your incisions. You have steri-strips over your incisions. These will fall off by themselves, do not pick or peel them off. Please follow-up with Dr. Villaseñor in the General Surgery clinic in 1-2 weeks. You will need to call the clinic at [phone] to make this follow-up appointment. You have been prescribed Percocet for pain. Please follow the dosing directions. Do not take any additional Acetaminophen while taking Percocet. Prescriptions: New oxycodone-acetaminophen [Percocet] 5-325 mg tablet 1 - 2 tab PO Q6H PRN (Reason: pain) 3 Days Qty: 12 RF: 0 Continued aspirin [Aspir-81] 81 mg Tablet,Delayed Release (Dr/Ec) 81 mg PO DAILY PRN (Reason: Pain) RF: 0 ibuprofen 200 mg Tablet 600 mg PO DAILY PRN (Reason: Pain) RF: 0 Stand-Alone Forms: Call Back Authorization, [facility], [facility] Discharge Orders: Discharge Order (Routine); Ordered 11/10/18 Ordered By: Amira Lind Admission Data Admit Date/Time: 11/10/18 01:16 Attending Provider: Terry Villaseñor Admit Provider: Terry Villaseñor Primary Care Provider: PCP,NO Service: Surgical Services Other Interventions: Discharge Summary Assessment (RN) Last Done: 11/10/18 10:57 Pending Studies at Discharge: Yes Studies:: Pathology report. DC Date/Time DO NOT enter until pt leaves facility: 11/10/18 11:25
== END 2018-11-10 11:25 | disposition home or self-care (01) ==
LOC: ED 18:31 → OR 23:26 → 3N 23:26